=== PATIENT | female | born 1955 | race Caucasian/White ===

== ENCOUNTER → 2017-11-15 | Outpatient (CLI) | payer BC ==
[~2017-11-15] MED LIST: CALC1TAB62 PO; CHOL200027 PO; LISI-461 PO; MULT-506 PO; NXM/40 PO; OMEG1CAP81 PO; RANI300T PO; SIMV40TA2 PO
--- NOTE | 2017-11-15 12:37 | DIAGNOSTIC IMAGING REPORT ---
VIDEO SWALLOW STUDY CLINICAL HISTORY: Dysphagia. COMPARISON STUDY: Upper GI series dated 02/08/2015. Fluoroscopy time: 1.7 minutes. FINDINGS: Fluoroscopic guidance was provided to the Department of Speech Pathology in performing a video swallow study. The patient consumed barium-impregnated pudding, cracker with paste, nectar liquid and thin barium while the swallowing mechanism was observed in real-time. No penetration or aspiration was identified with any of the sampled textures. Esophageal dysmotility was observed. IMPRESSION: 1. No penetration or aspiration was seen within the sample textures. 2. Mild esophageal dysmotility is observed. Dictated: 11/15/2017 11:57 AM Transcribed: 11/15/2017 12:36 PM [email or web address] Electronically signed by: Tyshawn Chino M.D. 11/15/2017 12:47 PM Dictated Date/Time: 11/15/2017 11:57 AM
--- NOTE | 2017-11-15 12:53 | SWALLOWING EVALUATION ---
HISTORY: This 62 year old woman was referred for a video swallow study at [facility] in order to rule out aspiration and identify the safest consistencies for optimal oral intake. The patient is reporting some swallowing difficulty and it often feels as though food can become stuck in her throat. She is also reporting increased soreness/burning along the right side of her throat. PMH is significant for: GERD and HTN. She also participated in an EGD on 02/16/15 which revealed a normal esophagus. Current diet is regular. PROCEDURE: The patient was seen in the Radiology Department of [facility] for the VFSS. Cursory examination of the oral cavity revealed the patient to have natural upper and lower dentition in good condition. Strength and ROM of the articulators was wnl. The patient was seated upright on a stool and was viewed in the Lateral and the Anterior-Posterior (A-P) planes. Volitional phonation exercises completed in the A-P plane revealed bilateral vocal fold movement. Vocal intensity was wnl. In the lateral plane, the patient was given the following boluses: 1 tsp. thin liquid barium x 2, single swallow thin liquid barium self-presented from a cup, serial swallows of thin liquid barium self-presented via straw, 1 tsp. nectar-thick liquid barium, single swallow nectar-thick liquid barium self-presented from a cup, 1 tsp. barium pudding, and 1/2 club cracker coated in barium pudding. The patient was then repositioned into the A-P plane and given the following boluses: 1 tsp. nectar thick barium and 1 tsp. barium pudding. RESULTS: Oral Stage: Lip closure was adequate. The patient was able to maintain a cohesive liquid bolus in the oral cavity during the liquid bolus hold task. Mastication was timely and efficient. Lingual motion for bolus transport was slowed. There was retention lining the tongue and palate after the initial swallow. The initiation of the pharyngeal swallow was delayed and occurred when the bolus head reached the valleculae. Piecemeal like deglutition was evidenced. Pharyngeal Stage: Soft palate elevation was complete. Laryngeal elevation revealed complete superior movement of the thyroid cartilage with complete approximation of the arytenoids to the epiglottic base. Anterior hyoid excursion and epiglottic deflection was complete. Laryngeal vestibular closure was complete. The pharyngeal stripping wave was present and complete. Pharyngeal contraction was complete. There was complete distention and duration of the opening to the pharyngoesophageal segment (PES). Tongue base retraction was partially reduced with a trace column of contrast located between the tongue base and pharyngeal wall during the swallow. There was trace retention located in the valleculae after the swallow. There was no evidence of laryngeal penetration or aspiration for this study. The patient did not have any significant retention present in the pharynx after the swallow was complete. Esophageal stage: There was retention in the mid esophagus, with slowed distal esophageal transit. These findings overall are suggestive of esophageal dysmotility. SUMMARY/RECOMMENDATIONS: This patient presents with normal oropharyngeal swallowing mechanics. She presents with s/s of esophageal dysfunction. The following is recommended: 1. Regular diet "SLIPPERY", thin liquids. Choose foods that are moist, loose, slippery; avoid foods that are doughy, thick, dry (e.g., soft breads, thick meat, etc.). Add condiments to foods such as sauce or gravy to assist in keeping foods moist 2. Aspiration and GERD precautions: FULLY UPRIGHT for meals and for 30 minutes after meals; head of bed at least 30-degrees at all times. Straws OK. 3. Safe swallow strategies: Rest breaks during meals. Small frequent meals. Alternate solids and liquids as needed. 4. Consider follow up with a GI specialist for management for esophageal dysfunction (medication adjustments, further testing as needed) as appropriate. A summary of the results and recommendations was discussed with the patient immediately following the study with verbal understanding. Also provided both written and verbal information regarding a "slippery" diet with verbal understanding to this as well. Patient reported that her reflux medication was changed to a generic brand several months ago, and did not notice any throat soreness prior to this change. MINE TECHNICIAN educated the patient to speak with the physician about this as it is possible the current brand of medications is not effective to manage her symptoms. In agreement. Thank you for referral of this patient. Please contact me at if any additional information is needed.
== END | disposition home or self-care (01) ==
LOC: C.RAD 10:55
PROVIDERS: ATTEND Family Medicine
DX: R13.10 Dysphagia, unspecified (principal)